=== PATIENT | male | born 1935 | race Caucasian/White ===

== ENCOUNTER 2017-05-14 13:05 | Inpatient (IN) | payer OTHER, BC ==
--- NOTE | 2017-05-14 13:47 | PDOC ---
History of Present Illness - General Chief Complaint: Syncope/Near Syncope Stated Complaint: WEAKNESS Time Seen by Provider: 05/14/17 13:46 - History of Present Illness Initial Comments: 81 year old male with history of HLD and hypothyroidism presenting with one episode of shakes, lightheadedness, and altered mental status a few hours prior to presentation. He was walking with his friend when he stopped of all of a sudden and began to experience upper body shakes and began to appear mentally altered. He denies any fevers, chills, nausea, vomiting, chest pain, focal neurological signs, urinary issues, or gi symptoms. However, during our interview he did urinate himself which the family at bedside said is brand new for him. They state that he is usually very sharp and actually takes care of his at home. His PCP is Dr. Jeong. 05/14/17 14:53 Past History - Past Medical History Allergies/Adverse Reactions: Allergies Allergy/AdvReac Type Severity Reaction Status Date / Time No Known Allergies Allergy Verified 05/14/17 13:14 Home Medications: Ambulatory Orders Aspirin [ASA -] 81 mg PO DAILY 05/14/17 Atorvastatin Ca [Lipitor] 20 mg PO HS 05/14/17 Cholecalciferol (Vitamin D3) [Vitamin D3 -] 2,000 unit PO DAILY 05/14/17 Levothyroxine [Synthroid -] 0 mcg PO DAILY 05/14/17 COPD: No Hypercholesterolemia: Yes Thyroid Disease: Yes (HYPO.) - Suicide/Smoking/Psychosocial Hx Smoking History: Never smoked Hx Alcohol Use: No Drug/Substance Use Hx: No Substance Use Type: None Review of Systems - Review of Systems Constitutional: No: Chills, Fever HEENTM: No: Blurred Vision, Recent change in vision Respiratory: No: Cough, Orthopnea, Shortness of Breath, Stridor, Wheezing Cardiac (ROS): Yes: Lightheadedness. No: Chest Pain, Edema, Syncope ABD/GI: No: Constipated, Diarrhea, Nausea, Vomiting : Yes: Incontinence. No: Dysuria, Discharge, Frequency Musculoskeletal: No: Back Pain Integumentary: No: Erythema, Flushing, Lesions, Lumps Neurological: No: Headache, Numbness *Physical Exam - Vital Signs Last Vital Signs Temp Pulse Resp BP Pulse Ox 98.5 F 97 H 18 133/75 97 05/14/17 13:10 05/14/17 13:10 05/14/17 13:10 05/14/17 13:10 05/14/17 13:10 - Physical Exam General Appearance: Yes: Nourished, Appropriately Dressed. No: Apparent Distress HEENT: positive: EOMI, SADAF, Normal ENT Inspection, Normal Voice Neck: positive: Trachea midline, Normal Thyroid, Supple. negative: Tender, Rigid Respiratory/Chest: positive: Lungs Clear, Normal Breath Sounds. negative: Chest Tender, Respiratory Distress, Accessory Muscle Use Cardiovascular: positive: Regular Rhythm, Regular Rate Gastrointestinal/Abdominal: positive: Normal Bowel Sounds, Flat, Soft. negative : Tender Male Genitalia: positive: normal genitalia, other (Urinated himself and cannot aciveloy control his urine) Musculoskeletal: positive: Normal Inspection Extremity: positive: Normal Capillary Refill, Normal Inspection Integumentary: positive: Normal Color, Dry, Warm (Skin unusually warm to touch) Neurologic: positive: sole seamer II-XII NML intact, Alert, Normal Mood/Affect, Motor Strength 5/5. negative: Fully Oriented (A) x2 (Person and Place, believed it was 1964)) ED Treatment Course - LABORATORY CBC & Chemistry Diagram: 05/14/17 15:05 05/14/17 15:05 Medical Decision Making - Medical Decision Making 81 year old male with urinary incontinence on interview, AMS, and gait abnormality/ shaking episode. Concern is broad as patient appeared warm. Infectious pathology such as UTI, PNA, and any soft tissue infection should all be ruled out. Head CT should be performed to rule out NPH although infectious etiology more likely. Patient admitted to Dr. Noel with head CT pending but UA demonsrating hematuria with leuk esterase pending, and CXR clear. Will admit for SIRS (Fevers, heart >90, and WBC with left shift) with suspected source in urine. Ceftriaxone given. Tylenol given for fever. 05/14/17 17:38 *DC/Admit/Observation/Transfer Diagnosis at time of Disposition: SIRS (systemic inflammatory response syndrome), Microscopic hematuria, Neutrophilic leukocytosis - Discharge Dispostion Condition at time of disposition: Stable Admit: Yes - Referrals Referrals: James Simpson MD [Primary Care Provider] - - Patient Instructions - Post Discharge Activity
[2017-05-14 15:34] LABS: VENOUS BLOOD GAS HCO3 27.9 meq/L (19-25); VENOUS PH 7.41 (7.32-7.42)
[2017-05-14 15:54] LABS: ANION GAP 8 (8-16); CALCIUM 9.2 mg/dL (8.5-10.1); CO2 29 mmol/L (21-32); CREATININE 1.2 mg/dL (0.7-1.3); GLUCOSE,RANDOM 78 mg/dL (74-106); SGOT/AST 25 U/L (15-37); SGPT/ALT 29 U/L (12-78)
[2017-05-14 15:56] LABS: PH,URINE 7.5 (5.0-8.0); URINE APPEARANCE CLEAR; URINE BILIRUBIN NEGATIVE (NEGATIVE); URINE BLOOD TRACE-INTA (NEGATIVE); URINE COLOR LT. YELLOW; URINE GLUCOSE (UA) NEGATIVE (NEGATIVE); URINE KETONE NEGATIVE (NEGATIVE); URINE NITRITE NEGATIVE (NEGATIVE); URINE PROTEIN NEGATIVE (NEGATIVE); URINE UROBILINOGEN 0.2 mg/dL (0.2-1.0)
[2017-05-14 15:59] LABS: ALK PHOS 78 U/L (45-117); BILIRUBIN,TOTAL 0.6 mg/dL (0.2-1.0); CPK 282 IU/L (39-308); TOT PROT 7.6 g/dl (6.4-8.2); TROPONIN I < 0.02 ng/ml (0.00-0.05)
--- NOTE | 2017-05-14 16:13 | PDOC ---
Attending Attestation - Resident Resident Name: Temo Guallpa - ED Attending Attestation I have performed the following: I have examined & evaluated the patient, The case was reviewed & discussed with the resident, I agree w/resident's findings & plan, Exceptions are as noted - HPI HPI: 05/14/17 18:17 81y M hx of hl, hypothyroidism presents with episode of chills/lightheadedness prior to arrival. pt deeins any other complaints including cp, sob, cough, congestion/uri symptoms, abd pain, diarrhea, bpr, dysuria/frequency, rash, ear pain. pt noted warm on exam and his temp showe da fever. his exam is unremarkble with clear lngs, soft abdomen, card exam unremabkel without any murmuers, no rashes. his workup does not reveal any focal signs of infection his UA shows trace blood, but LE pending will treat with abx will admit for further nmanageemnt blood cultures pending - Physicial Exam PE: 05/18/17 16:40 see above - Medical Decision Making 05/18/17 16:40 see above Heart Score/ECG Review - ECG Impressions Comment:: 05/14/17 18:19 Twelve-lead EKG was performed and reviewed by me. There is normal sinus rhythm with a normal rate. Rate of 93 The axis is normal. The intervals are normal. There is normal R wave progression There are no ST or T wave abnormalities. Impression: Normal twelve-lead EKG
[2017-05-14] MEDS ORDERED: ACETAMINOPHEN 500 MG TABLET (FP) PO ONE (16:15)
[2017-05-14 16:20] LABS: BASOPHIL 0.3 % (0-2.0); EOSINOPHIL 0.5 % (0-4.5); MCH 32.8 pg (25.7-33.7); MEAN CELL VOLUME 96.4 fl (80-96); NEUTROPHILS 87.4 % (42.8-82.8); RDW 14.2 % (11.9-15.9); WHITE BLOOD COUNT 11.8 K/mm3 (4.0-10.0)
[2017-05-14] MEDS ORDERED: ACETAMINOPHEN 325 MG TABLET (FP) PO PRN (16:38)
--- NOTE | 2017-05-14 16:44 | HP ---
Admitting History and Physical - Primary Care Physician PCP: James Simpson - Admission Chief Complaint: I was told to come in History of Present Illness: Mr Gaines is a very pleasant 81 year old male who was sent in from the office with weakness. He states he was in his normal state of health until this morning. He noticed that when he stood up he felt lightheaded. He did not pass out from this. He sat down and began to shake. He says it was his upper body and he was not able to control it. He was also having a hard time standing up. He went into the office and it was noted that he was very weak and unable to stand without assistance. Because of that he came in. He endorses chills and possibly difficulty urinating with small urge incontinence. He denies fevers, passing out, sore throat, chest pain, coughing, nausea, vomiting, diarrhea, constipation, burning on urination, or swelling. He says he feels ok now. History Source: Patient Limitations to Obtaining History: No Limitations - Past Medical History Cardiovascular: Yes: HTN, Hyperlipdemia Renal/: Yes: Other (prostate polyps) Endocrine: Yes: Hypothyroidism - Past Surgical History Past Surgical History: Yes: None - Smoking History Smoking history: Never smoked - Alcohol/Substance Use Hx Alcohol Use: Yes History of Substance Use: reports: None - Social History Usual Living Arrangement: Yes: Alone History of Recent Travel: No Home Medications - Allergies Allergies/Adverse Reactions: Allergies Allergy/AdvReac Type Severity Reaction Status Date / Time No Known Allergies Allergy Verified 05/14/17 13:14 - Home Medications Home Medications: Ambulatory Orders Aspirin [ASA -] 81 mg PO DAILY 05/14/17 Atorvastatin Ca [Lipitor] 20 mg PO HS 05/14/17 Cholecalciferol (Vitamin D3) [Vitamin D3 -] 2,000 unit PO DAILY 05/14/17 Levothyroxine [Synthroid -] 0 mcg PO DAILY 05/14/17 Family Disease History - Family Disease History Family Disease History: Other: Father ( young, unknown cause), Mother (CVA) Review of Systems Findings/Remarks: Full review of systems obtained, as per HPI and otherwise negative Physical Examination Vital Signs: Vital Signs Temperature 39.8 C H 05/14/17 15:17 Pulse Rate 97 H 05/14/17 13:10 Respiratory Rate 18 05/14/17 13:10 Blood Pressure 133/75 05/14/17 13:10 O2 Sat by Pulse Oximetry (%) 97 05/14/17 13:10 Constitutional: Yes: Well Nourished, No Distress, Calm Eyes: Yes: Conjunctiva Clear, EOM Intact, PERRL Cardiovascular: Yes: Regular Rate and Rhythm. No: Gallop, Murmur, Rub Respiratory: Yes: Regular, CTA Bilaterally. No: Rales, Rhonchi, Wheezes Gastrointestinal: Yes: Normal Bowel Sounds, Soft. No: Distention, Tenderness Extremities: Yes: WNL Edema: No Labs: CBC, BMP 05/14/17 15:05 05/14/17 15:05 Imaging - Results Chest X-ray: Report Reviewed, Image Reviewed Cat Scan: Report Reviewed Problem List - Problems (1) UTI (urinary tract infection) Assessment/Plan: -patient presents with symptoms consistent with UTI -await cell count with urinalysis -urine culture pending -levaquin 500mg daily, has better prostate penetration -lactobacillus Code(s): N39.0 - URINARY TRACT INFECTION, SITE NOT SPECIFIED Qualifiers: Urinary tract infection type: acute cystitis Hematuria presence: without hematuria Qualified Code(s): N30.00 - Acute cystitis without hematuria (2) Sepsis Assessment/Plan: -as evidenced by UTI with fevers and leukocytosis -admit to hospital -gentle hydration -antibiotics as above -also check influenza swab Code(s): A41.9 - SEPSIS, UNSPECIFIED ORGANISM (3) Hyperlipidemia Assessment/Plan: -continue statin Code(s): E78.5 - HYPERLIPIDEMIA, UNSPECIFIED (4) Prostate CA Assessment/Plan: -noted Code(s): C61 - MALIGNANT NEOPLASM OF PROSTATE (5) Nasal mass Assessment/Plan: -seen on CT scan of head -consult ENT Code(s): R22.0 - LOCALIZED SWELLING, MASS AND LUMP, HEAD (6) Hypothyroid Assessment/Plan: -unclear dose -will d/w Dr Simpson dosing for synthroid -restart when have correct dosage Code(s): E03.9 - HYPOTHYROIDISM, UNSPECIFIED
[2017-05-14] MEDS ORDERED: CEFTRIAXONE 1 GM in DEXTROSE 5%-WATER - 100 ML IVPB ONE (16:45)
[2017-05-14] MEDS ORDERED: ACETAMINOPHEN 500 MG TABLET (FP) ONE (16:48)
[2017-05-14] MEDS: SODIUM CHLORIDE 1,000 ML IV SCH (17:37)
[2017-05-14] MEDS: LEVOFLOXACIN 500 MG IVPB 500 MG/100 ML BAG IVPB SCH (17:37)
[2017-05-14] MEDS ORDERED: CEFTRIAXONE 1 GM/50 ML BAG ONE (17:55)
[2017-05-14] MEDS: LACTOBACILLUS ACIDOPHILUS 1 EACH TAB (FP) PO SCH (19:45)
[2017-05-14 20:14] LABS: URINE LEUK ESTERASE TRACE (NEGATIVE)
[2017-05-14 20:56] LABS: URINE BACTERIA MANY /hpf (NEGATIVE)
[2017-05-14] MEDS ORDERED: ATORVASTATIN CA 40 MG TABLET (FP) ONE (22:58)
[2017-05-14] MEDS: ATORVASTATIN CA 20 MG TABLET (FP) PO SCH (23:04)
[2017-05-15 00:49] LABS: PLATELET COMMENTS NO CLUMPING NOTED; PLATELET COUNT 173 K/MM3 (134-434)
[2017-05-15] MEDS: SODIUM CHLORIDE 1,000 ML IV SCH ×2 (05:33→11:43)
[2017-05-15 05:50] VITALS: BMI 24.4
[2017-05-15 08:35] LABS: BASOPHIL 0.3 % (0-2.0); EOSINOPHIL 0.4 % (0-4.5); MCH 32.4 pg (25.7-33.7); MCHC 34.2 g/dl (32.0-35.9); MEAN CELL VOLUME 94.9 fl (80-96); MEAN PLT VOLUME 8.2 fl (7.5-11.1); NEUTROPHILS 78.7 % (42.8-82.8); PLATELET COUNT 141 K/MM3 (134-434); RDW 14.3 % (11.9-15.9); WHITE BLOOD COUNT 13.4 K/mm3 (4.0-10.0)
[2017-05-15 09:03] LABS: ANION GAP 6 (8-16); CALCIUM 7.7 mg/dL (8.5-10.1); CO2 27 mmol/L (21-32); CREATININE 1.4 mg/dL (0.7-1.3); GLUCOSE,RANDOM 105 mg/dL (74-106); PHOSPHOROUS 2.3 mg/dL (2.5-4.9)
[2017-05-15] MEDS: LEVOFLOXACIN 500 MG IVPB 500 MG/100 ML BAG IVPB SCH (09:47)
[2017-05-15] MEDS: ENOXAPARIN NA (PORCINE) 40 MG/0.4 ML DISP.SYRIN SQ SCH (09:47)
[2017-05-15] MEDS: CHOLECALCIFEROL (VITAMIN D3) 1,000 UNIT TABLET (FP) PO SCH (09:48)
[2017-05-15] MEDS: LACTOBACILLUS ACIDOPHILUS 1 EACH TAB (FP) PO SCH (09:48)
[2017-05-15] MEDS: ASPIRIN 81 MG CHEWABLE TABLETS PO SCH (09:48)
--- NOTE | 2017-05-15 12:02 | PN ---
Progress Note, Physician Chief Complaint: Mr Gaines is without complaint today and feels better. Denies shaking, chills, lightheadedness, and weakness. No cp, sob, n/v. - Current Medication List Current Medications: Active Medications Acetaminophen (Tylenol -) 650 mg PO Q4H PRN PRN Reason: FEVER OR PAIN Aspirin (Asa -) 81 mg PO DAILY [facility] Last Admin: 05/15/17 09:48 Dose: Not Given Atorvastatin Calcium (Lipitor -) 20 mg PO HS [facility] Last Admin: 05/14/17 23:04 Dose: 20 mg Cholecalciferol (Vitamin D3 -) 2,000 unit PO DAILY [facility] Last Admin: 05/15/17 09:48 Dose: 2,000 unit Enoxaparin Sodium (Lovenox -) 40 mg SQ DAILY [facility] Last Admin: 05/15/17 09:47 Dose: 40 mg Sodium Chloride (Normal Saline -) 1,000 mls @ 42 mls/hr IV ASDIR [facility] Last Admin: 05/15/17 05:33 Dose: 42 mls/hr Levofloxacin (Levaquin 500 Mg Premixed Ivpb -) 500 mg in 100 mls @ 100 mls/hr IVPB DAILY [facility] Last Admin: 05/15/17 09:47 Dose: 100 mls/hr Lactobacillus Acidophilus (Bacid -) 1 tab PO DAILY [facility] Last Admin: 05/15/17 09:48 Dose: 1 tab - Objective Vital Signs: Vital Signs Temperature 36.8 C 05/15/17 05:02 Pulse Rate 82 05/15/17 05:02 Respiratory Rate 18 05/15/17 05:02 Blood Pressure 93/54 05/15/17 05:02 O2 Sat by Pulse Oximetry (%) 96 05/15/17 04:45 Constitutional: Yes: Well Nourished, No Distress, Calm Cardiovascular: Yes: Regular Rate and Rhythm. No: Gallop, Murmur, Rub Respiratory: Yes: Regular, CTA Bilaterally. No: Rales, Rhonchi, Wheezes Gastrointestinal: Yes: Normal Bowel Sounds, Soft. No: Distention, Tenderness Extremities: Yes: WNL Edema: No Labs: CBC, BMP 05/15/17 08:28 05/15/17 08:28 INR, PTT INR Cancelled 05/14/17 15:05 Problem List - Problems (1) UTI (urinary tract infection) Code(s): N39.0 - URINARY TRACT INFECTION, SITE NOT SPECIFIED Qualifiers: Urinary tract infection type: acute cystitis Hematuria presence: without hematuria Qualified Code(s): N30.00 - Acute cystitis without hematuria (2) Sepsis Code(s): A41.9 - SEPSIS, UNSPECIFIED ORGANISM (3) Hyperlipidemia Code(s): E78.5 - HYPERLIPIDEMIA, UNSPECIFIED (4) Prostate CA Code(s): C61 - MALIGNANT NEOPLASM OF PROSTATE (5) Nasal mass Code(s): R22.0 - LOCALIZED SWELLING, MASS AND LUMP, HEAD (6) Hypothyroid Code(s): E03.9 - HYPOTHYROIDISM, UNSPECIFIED Assessment/Plan (1) UTI (urinary tract infection) Assessment/Plan: -continue levaquin 500mg daily day 2 -urinalysis showing many bacteria -awaiting urine culture results Code(s): N39.0 - URINARY TRACT INFECTION, SITE NOT SPECIFIED Qualifiers: Urinary tract infection type: acute cystitis Hematuria presence: without hematuria Qualified Code(s): N30.00 - Acute cystitis without hematuria (2) Sepsis Assessment/Plan: -still with leukocytosis and today with am hypotension -continue IVF -continue levaquin Code(s): A41.9 - SEPSIS, UNSPECIFIED ORGANISM (3) Hyperlipidemia Assessment/Plan: -continue statin Code(s): E78.5 - HYPERLIPIDEMIA, UNSPECIFIED (4) Prostate CA Assessment/Plan: -noted Code(s): C61 - MALIGNANT NEOPLASM OF PROSTATE (5) Nasal mass Assessment/Plan: -appreciate ENT assistance Code(s): R22.0 - LOCALIZED SWELLING, MASS AND LUMP, HEAD (6) Hypothyroid Assessment/Plan: -continue synthroid Code(s): E03.9 - HYPOTHYROIDISM, UNSPECIFIED
--- NOTE | 2017-05-15 12:54 | CON.ENT ---
Consult Consult Specialty:: ENT Reason for Consultation:: Nasal mass on CT scan - History of Present Illness Chief Complaint: Nasal mass History of Present Illness: 81 yo male who presented to [facility] ER with lightheadness was noted to have a finding of nasal mass on CT scan of the head. Pt denies any nasal issues of obstruction, nosebleeds, loss of smell or congestion/runny nose. He denies seasonal allergy issues or chronic headaches. - History Source History Provided By: Patient Limitations to Obtaining History: No Limitations - Past Medical History Cardio/Vascular: Yes: HTN, Hyperlipdemia Renal/: Yes: Other (prostate polyps) ENT: No: Allergic Rhinitis, Sinusitis, Other Endocrine: Yes: Hypothyroidism - Past Surgical History Past Surgical History: Yes: None - Alcohol/Substance Use Hx Alcohol Use: Yes (a beer with dinner) History of Substance Use: reports: None - Smoking History Smoking history: Never smoked - Social History History of Recent Travel: No Home Medications - Allergies Allergies/Adverse Reactions: Allergies Allergy/AdvReac Type Severity Reaction Status Date / Time No Known Allergies Allergy Verified 05/14/17 13:14 - Home Medications Home Medications: Ambulatory Orders Atorvastatin Ca [Lipitor] 20 mg PO HS 05/14/17 Cholecalciferol (Vitamin D3) [Vitamin D3 -] 2,000 unit PO DAILY 05/14/17 Family Disease History - Family Disease History Family Disease History: Other: Father ( young, unknown cause), Mother (CVA) Review of Systems - Review of Systems HENT: reports: No Symptoms Neck: reports: No Symptoms Physical Exam-ENT Vital Signs: Vital Signs Temperature 98.3 F 05/15/17 05:02 Pulse Rate 82 05/15/17 05:02 Respiratory Rate 18 05/15/17 05:02 Blood Pressure 93/54 05/15/17 05:02 O2 Sat by Pulse Oximetry (%) 96 05/15/17 04:45 Constitutional: Yes: Well Nourished, No Distress Head: Yes: WNL Face: Yes: WNL Eyes: Yes: EOM Intact Nose: Yes: Pale, Septum Deviated Nasal Passage: Yes: Polyps Oral/Pharynx: Yes: WNL Outer Ear: Yes: WNL Ear Canal: Yes: WNL Tympanic Membrane: Yes: WNL Neck: Yes: WNL, Supple Neurological: Yes: Cran Nerves II-XII Intact Imaging - Results Cat Scan: Report Reviewed, Image Reviewed Problem List - Problems (1) Nasal polyps Assessment/Plan: Pt noted to have nasal mass on CT scan of head, bilateral nasal polyps noted, larger on the right. Pt is and has been asymptomatic without complaint. Can treat with nasal steroid spray if needed. No further intervention at this time. Code(s): J33.9 - NASAL POLYP, UNSPECIFIED Procedure Note Procedure: After obtaining verbal consent from the patient, nasal endoscopy was performed. Topical anesthetic sprayed, flexible endoscope passed. Mildly deviated septum with pale mucosa noted. Pale inferior turbinates with mild hypertrophy. Bilateral small polyps in middle meatus. Larger polyps inferiorly on the right from sphenoethmoid recess obstructing posteriorly . No infection or suspicious lesions noted.
--- NOTE | 2017-05-15 13:03 | EKG ---
Test Reason : Blood Pressure : / mmHG Vent. Rate : 093 BPM Atrial Rate : 093 BPM P-R Int : 168 ms QRS Dur : 088 ms QT Int : 324 ms P-R-T Axes : -25 080 004 degrees QTc Int : 402 ms NORMAL SINUS RHYTHM NORMAL ECG NO PREVIOUS ECGS AVAILABLE Confirmed by ALON BARTH, LIBIA ([id number]) on 05/15/2017 1:02:46 PM Referred By: Confirmed By:LIBIA CHI MD
--- NOTE | 2017-05-15 14:17 | PN ---
Progress Note (short form) - Note Progress Note: Patient was standing up to use the restroom and slipped on the floor and fell. Did not hit his head or lose consciousness. Patient says he was not dizzy or passed out causing the fall and that it was mechanical. Denies any pain or other concern, says he feels fine. Gen: nad Pulm: ctab CV: rrr Abd: +bs, s/nt/nd Ext: no c/c/e A/P 1. Mechanical fall -place on fall risk precautions -PT consulted and will see -obtain head CT Problem List - Problems (1) UTI (urinary tract infection) Code(s): N39.0 - URINARY TRACT INFECTION, SITE NOT SPECIFIED Qualifiers: Urinary tract infection type: acute cystitis Hematuria presence: without hematuria Qualified Code(s): N30.00 - Acute cystitis without hematuria (2) Sepsis Code(s): A41.9 - SEPSIS, UNSPECIFIED ORGANISM (3) Hyperlipidemia Code(s): E78.5 - HYPERLIPIDEMIA, UNSPECIFIED (4) Prostate CA Code(s): C61 - MALIGNANT NEOPLASM OF PROSTATE (5) Nasal mass Code(s): R22.0 - LOCALIZED SWELLING, MASS AND LUMP, HEAD (6) Hypothyroid Code(s): E03.9 - HYPOTHYROIDISM, UNSPECIFIED
[2017-05-15 18:02] LABS: INR 1.48 (0.82-1.09); PROTHROMBIN TIME (PATIENT) 16.7 SEC (9.98-11.88)
[2017-05-15 18:05] LABS: ACTIVATED PTT 36.1 SECONDS (26.9-34.4)
[2017-05-15] MEDS: ATORVASTATIN CA 20 MG TABLET (FP) PO SCH (23:02)
[2017-05-16 07:29] LABS: BASOPHIL 0.2 % (0-2.0); EOSINOPHIL 1.2 % (0-4.5); MCH 32.3 pg (25.7-33.7); MCHC 33.8 g/dl (32.0-35.9); MEAN CELL VOLUME 95.5 fl (80-96); MEAN PLT VOLUME 8.1 fl (7.5-11.1); NEUTROPHILS 70.9 % (42.8-82.8); PLATELET COUNT 127 K/MM3 (134-434); RDW 14.3 % (11.9-15.9); WHITE BLOOD COUNT 10.9 K/mm3 (4.0-10.0)
[2017-05-16 08:13] LABS: ANION GAP 6 (8-16); CALCIUM 7.6 mg/dL (8.5-10.1); CO2 27 mmol/L (21-32); CREATININE 1.1 mg/dL (0.7-1.3); GLUCOSE,RANDOM 97 mg/dL (74-106); MAGNESIUM 2.2 mg/dL (1.8-2.4); PHOSPHOROUS 2.2 mg/dL (2.5-4.9)
[2017-05-16] MEDS ORDERED: NAPH,MB-DB/K PH,MBDB POWDER PACKET PO ONE (09:23)
[2017-05-16] MEDS: LACTOBACILLUS ACIDOPHILUS 1 EACH TAB (FP) PO SCH (10:40)
[2017-05-16] MEDS: CHOLECALCIFEROL (VITAMIN D3) 1,000 UNIT TABLET (FP) PO SCH (10:40)
[2017-05-16] MEDS: LEVOFLOXACIN 500 MG IVPB 500 MG/100 ML BAG IVPB SCH (10:40)
[2017-05-16] MEDS: ENOXAPARIN NA (PORCINE) 40 MG/0.4 ML DISP.SYRIN SQ SCH (10:40)
[2017-05-16] MEDS: ASPIRIN 81 MG CHEWABLE TABLETS PO SCH (10:40)
[2017-05-16] MEDS: SODIUM CHLORIDE 1,000 ML IV SCH (11:44)
--- NOTE | 2017-05-16 16:19 | PN ---
Progress Note, Physician Chief Complaint: Mr Gaines is without complaint today and feels better. No cp, sob, n/v. Hoping to go home soon. - Current Medication List Current Medications: Active Medications Acetaminophen (Tylenol -) 650 mg PO Q4H PRN PRN Reason: FEVER OR PAIN Aspirin (Asa -) 81 mg PO DAILY [facility] Last Admin: 05/16/17 10:40 Dose: 81 mg Atorvastatin Calcium (Lipitor -) 20 mg PO HS [facility] Last Admin: 05/15/17 23:02 Dose: 20 mg Cholecalciferol (Vitamin D3 -) 2,000 unit PO DAILY [facility] Last Admin: 05/16/17 10:40 Dose: 2,000 unit Enoxaparin Sodium (Lovenox -) 40 mg SQ DAILY [facility] Last Admin: 05/16/17 10:40 Dose: 40 mg Sodium Chloride (Normal Saline -) 1,000 mls @ 42 mls/hr IV ASDIR [facility] Last Admin: 05/16/17 11:44 Dose: 42 mls/hr Levofloxacin (Levaquin 500 Mg Premixed Ivpb -) 500 mg in 100 mls @ 100 mls/hr IVPB DAILY [facility] Last Admin: 05/16/17 10:40 Dose: 100 mls/hr Lactobacillus Acidophilus (Bacid -) 1 tab PO DAILY [facility] Last Admin: 05/16/17 10:40 Dose: 1 tab - Objective Vital Signs: Vital Signs Temperature 36.3 C L 05/16/17 14:15 Pulse Rate 71 05/16/17 14:15 Respiratory Rate 18 05/16/17 14:15 Blood Pressure 112/68 05/16/17 14:15 O2 Sat by Pulse Oximetry (%) 95 05/16/17 09:00 Constitutional: Yes: Well Nourished, No Distress, Calm Cardiovascular: Yes: Regular Rate and Rhythm. No: Gallop, Murmur, Rub Respiratory: Yes: Regular, CTA Bilaterally. No: Rales, Rhonchi, Wheezes Gastrointestinal: Yes: Normal Bowel Sounds, Soft. No: Distention, Tenderness Extremities: Yes: WNL Edema: No Labs: CBC, BMP 05/16/17 06:00 05/16/17 06:00 INR, PTT INR 1.48 (0.82-1.09) H 05/15/17 16:35 Problem List - Problems (1) UTI (urinary tract infection) Code(s): N39.0 - URINARY TRACT INFECTION, SITE NOT SPECIFIED Qualifiers: Urinary tract infection type: acute cystitis Hematuria presence: without hematuria Qualified Code(s): N30.00 - Acute cystitis without hematuria (2) Sepsis Code(s): A41.9 - SEPSIS, UNSPECIFIED ORGANISM (3) Hyperlipidemia Code(s): E78.5 - HYPERLIPIDEMIA, UNSPECIFIED (4) Prostate CA Code(s): C61 - MALIGNANT NEOPLASM OF PROSTATE (5) Nasal mass Code(s): R22.0 - LOCALIZED SWELLING, MASS AND LUMP, HEAD (6) Hypothyroid Code(s): E03.9 - HYPOTHYROIDISM, UNSPECIFIED Assessment/Plan (1) UTI (urinary tract infection) Assessment/Plan: -continue levaquin 500mg daily day 3 -urine cultures positive -await final results Code(s): N39.0 - URINARY TRACT INFECTION, SITE NOT SPECIFIED Qualifiers: Urinary tract infection type: acute cystitis Hematuria presence: without hematuria Qualified Code(s): N30.00 - Acute cystitis without hematuria (2) Sepsis Assessment/Plan: -resolving -continue IVF -continue levaquin Code(s): A41.9 - SEPSIS, UNSPECIFIED ORGANISM (3) Hyperlipidemia Assessment/Plan: -continue statin Code(s): E78.5 - HYPERLIPIDEMIA, UNSPECIFIED (4) Prostate CA Assessment/Plan: -noted Code(s): C61 - MALIGNANT NEOPLASM OF PROSTATE (5) Nasal mass Assessment/Plan: -appreciate ENT assistance Code(s): R22.0 - LOCALIZED SWELLING, MASS AND LUMP, HEAD (6) Hypothyroid Assessment/Plan: -continue synthroid Code(s): E03.9 - HYPOTHYROIDISM, UNSPECIFIED
[2017-05-16] MEDS: ATORVASTATIN CA 20 MG TABLET (FP) PO SCH (21:14)
[2017-05-17] MEDS: SODIUM CHLORIDE 1,000 ML IV SCH (06:41)
[2017-05-17 08:15] LABS: BASOPHIL 0.5 % (0-2.0); EOSINOPHIL 5.3 % (0-4.5); MCH 32.4 pg (25.7-33.7); MCHC 33.8 g/dl (32.0-35.9); MEAN CELL VOLUME 95.9 fl (80-96); MEAN PLT VOLUME 8.6 fl (7.5-11.1); PLATELET COUNT 157 K/MM3 (134-434); WHITE BLOOD COUNT 6.3 K/mm3 (4.0-10.0)
[2017-05-17 08:21] LABS: ANION GAP 6 (8-16); CALCIUM 7.5 mg/dL (8.5-10.1); CO2 26 mmol/L (21-32); GLUCOSE,RANDOM 93 mg/dL (74-106); MAGNESIUM 2.3 mg/dL (1.8-2.4)
[2017-05-17 08:22] LABS: PHOSPHOROUS 2.7 mg/dL (2.5-4.9)
[2017-05-17] MEDS: LACTOBACILLUS ACIDOPHILUS 1 EACH TAB (FP) PO SCH (10:19)
[2017-05-17] MEDS: ENOXAPARIN NA (PORCINE) 40 MG/0.4 ML DISP.SYRIN SQ SCH (10:19)
[2017-05-17] MEDS: CHOLECALCIFEROL (VITAMIN D3) 1,000 UNIT TABLET (FP) PO SCH (10:20)
[2017-05-17] MEDS: ASPIRIN 81 MG CHEWABLE TABLETS PO SCH (10:20)
[2017-05-17] MEDS: LEVOFLOXACIN 500 MG IVPB 500 MG/100 ML BAG IVPB SCH (10:20)
[2017-05-17 11:03] VITALS: BP 101/71; PULSE 77; TEMP 98.1
--- NOTE | 2017-05-17 11:54 | DS ---
Physical Examination Vital Signs: Vital Signs Temperature 36.7 C 05/17/17 09:00 Pulse Rate 77 05/17/17 09:00 Respiratory Rate 18 05/17/17 09:00 Blood Pressure 101/71 05/17/17 09:00 O2 Sat by Pulse Oximetry (%) 94 L 05/17/17 09:00 Constitutional: Yes: Well Nourished, No Distress, Calm Cardiovascular: Yes: Regular Rate and Rhythm. No: Gallop, Murmur, Rub Respiratory: Yes: Regular, CTA Bilaterally. No: Rales, Rhonchi, Wheezes Gastrointestinal: Yes: Normal Bowel Sounds, Soft. No: Distention, Tenderness Extremities: Yes: WNL Edema: No Labs: CBC, BMP 05/17/17 06:30 05/17/17 06:30 Discharge Summary Reason For Visit: NEUTROPHILIA; LEUKOCYTOSIS; SIRS Current Active Problems Hyperlipidemia (Acute) Hypothyroid (Acute) Microscopic hematuria (Acute) Nasal mass (Acute) Nasal polyps (Acute) Neutrophilic leukocytosis (Acute) Prostate CA (Acute) SIRS (systemic inflammatory response syndrome) (Acute) Sepsis (Acute) UTI (urinary tract infection) (Acute) Hospital Course: (1) UTI (urinary tract infection) Code(s): N39.0 - URINARY TRACT INFECTION, SITE NOT SPECIFIED Qualifiers: Urinary tract infection type: acute cystitis Hematuria presence: without hematuria Qualified Code(s): N30.00 - Acute cystitis without hematuria (2) Sepsis Code(s): A41.9 - SEPSIS, UNSPECIFIED ORGANISM (3) Hyperlipidemia Code(s): E78.5 - HYPERLIPIDEMIA, UNSPECIFIED (4) Prostate CA Code(s): C61 - MALIGNANT NEOPLASM OF PROSTATE (5) Nasal mass Code(s): R22.0 - LOCALIZED SWELLING, MASS AND LUMP, HEAD (6) Hypothyroid Code(s): E03.9 - HYPOTHYROIDISM, UNSPECIFIED (7) Mechanical fall Mr Gaines is a very pleasant 81 year old male who comes in with sepsis secondary to UTI. He was admitted to the hospital and started on levaquin since it also has significant prostate penetration. He was hydrated for the sepsis. He improved significantly with this treatment. He had a mechanical fall without trauma. He is currently stable and at baseline. He was seen by PT after fall and was able to ambulate. He is currently stable for discharge home. 31 minutes spent in preparation of this discharge Condition: Good - Instructions Diet, Activity, Other Instructions: resume previous diet and activity Referrals: James Simpson MD [Primary Care Provider] - Disposition: HOME - Home Medications Comprehensive Discharge Medication List: Ambulatory Orders Atorvastatin Ca [Lipitor] 20 mg PO HS 05/14/17 Cholecalciferol (Vitamin D3) [Vitamin D3 -] 2,000 unit PO DAILY 05/14/17 Lactobacillus Acidophilus [Bacid -] 1 tab PO DAILY #10 tab 05/17/17 Levofloxacin [Levaquin] 500 mg PO DAILY #10 tablet 05/17/17
== END 2017-05-17 14:27 | disposition home or self-care (01) | DRG 872 ==
LOC: JER 13:05 → JERBED 16:43 → J7W 05-15 05:43
PROVIDERS: ADMIT Internal Medicine; ATTEND Internal Medicine
PROC: 09JK8ZZ Inspection of Nasal Mucosa and Soft Tissue, Via Natural or Artificial Opening Endoscopic (ICD-10-PCS; principal; 2017-05-15)
DX: A41.9 Sepsis, unspecified organism (principal); N39.0 Urinary tract infection, site not specified; E78.5 Hyperlipidemia, unspecified; E03.9 Hypothyroidism, unspecified; J33.9 Nasal polyp, unspecified; J34.2 Deviated nasal septum; R31.29 Other microscopic hematuria; R22.0 Localized swelling, mass and lump, head
CPT/HCPCS: 36415; 70450-TC; 71010-TC; 80048; 80053; 81003; 81015; 82040; 82550; 82553; 82803; 83605; 83735; 84100; 84484; 85025; 85610; 85730; 86850; 86900; 86901; 87040; 87086; 87186; 87804; 93005; 93010; 97116-GP; 97161-GP; 99285-25

== ENCOUNTER 2023-03-19 13:52 | Inpatient (IN) | payer OTHER ==
[2023-03-19] MEDS ORDERED: SODIUM CHLORIDE 0.9% 500 ML INFUS.BAG IV ONE (14:30)
[2023-03-19 15:53] LABS: BASO % 0.5 % (0-2.0); HEMATOCRIT 37.6 % (35.4-49); HEMOGLOBIN 13.1 GM/dL (11.7-16.9); LYMPH % 12.8 % (8-40); MCH 32.6 pg (25.7-33.7); MEAN CELL VOLUME 93.2 fl (80-96); MEAN PLT VOLUME 7.4 fl (7.5-11.1); MONO % 9.8 % (3.8-10.2); NEUT % 76.9 % (42.8-82.8); PLATELET COUNT 202 10^3/uL (134-434); RBC 4.03 M/mm3 (4.00-5.60); RDW 14.5 % (11.9-15.9); WHITE BLOOD COUNT 7.1 K/mm3 (4.0-10.0)
[2023-03-19 15:59] LABS: INR 1.17 (0.83-1.09); PROTHROMBIN TIME (PATIENT) 13.5 SEC (9.7-13.0)
[2023-03-19 16:01] LABS: ACTIVATED PTT 31.1 SECONDS (25.2-36.5)
[2023-03-19 16:11] LABS: POTASSIUM 4.2 mmol/L (3.5-5.1)
[2023-03-19 16:14] LABS: CALCIUM 8.5 mg/dL (8.5-10.1)
[2023-03-19 16:15] LABS: ALBUMIN 3.3 g/dl (3.4-5.0); BLOOD UREA NITROGEN 24.2 mg/dL (7-18); MAGNESIUM 2.5 mg/dL (1.8-2.4)
[2023-03-19 16:17] LABS: CREATININE 1.3 mg/dL (0.55-1.3); PHOSPHOROUS 2.8 mg/dL (2.5-4.9)
[2023-03-19 16:19] LABS: BILIRUBIN,TOTAL 0.5 mg/dL (0.2-1); TOT PROT 7.1 g/dl (6.4-8.2)
[2023-03-19 18:19] LABS: EPI CELLS 5 /uL (0-25.1); HYALINE CASTS 0 /uL (0-3.1); PH,URINE 5.5 (5.0-8.0); URINE APPEARANCE CLEAR; URINE BACTERIA 1 /uL (0-1359); URINE BILIRUBIN NEGATIVE (NEGATIVE); URINE COLOR YELLOW; URINE GLUCOSE (UA) NEGATIVE (NEGATIVE); URINE KETONE NEGATIVE (NEGATIVE); URINE LEUK ESTERASE TRACE (NEGATIVE); URINE NITRITE NEGATIVE (NEGATIVE); URINE PROTEIN 2+ (NEGATIVE); URINE UROBILINOGEN 0.2 mg/dL (0.2-1.0); URINE WBC 10 /uL (0-25.8)
[2023-03-19 21:32] LABS: URINE RBC 21.9 /uL (0-23.9)
[2023-03-19 21:33] LABS: YEAST FEW (NEGATIVE)
[2023-03-19] MEDS ORDERED: SODIUM CHLORIDE 1,000 ML IV SCH ×2 (22:45→22:55)
[2023-03-19] MEDS ORDERED: CEFTRIAXONE 1 GM in DEXTROSE 5%-WATER - 50 ML IVPB ONE (23:00)
[2023-03-19] MEDS ORDERED: CEFTRIAXONE 1 GM/50 ML BAG ONE (23:27)
[2023-03-20 02:41] VITALS: BMI 24.3
[2023-03-20 09:09] LABS: BASO % 0.9 % (0-2.0); EOS % 0.4 % (0-4.5); HEMATOCRIT 35.7 % (35.4-49); LYMPH % 26.6 % (8-40); MCH 32.2 pg (25.7-33.7); MCHC 33.6 g/dl (32.0-35.9); MEAN CELL VOLUME 95.8 fl (80-96); MEAN PLT VOLUME 7.7 fl (7.5-11.1); MONO % 11.2 % (3.8-10.2); NEUT % 60.9 % (42.8-82.8); PLATELET COUNT 182 10^3/uL (134-434); RBC 3.72 M/mm3 (4.00-5.60); RDW 15.2 % (11.9-15.9)
[2023-03-20 09:41] LABS: POTASSIUM 3.9 mmol/L (3.5-5.1)
[2023-03-20 09:43] LABS: BLOOD UREA NITROGEN 21.5 mg/dL (7-18); MAGNESIUM 2.3 mg/dL (1.8-2.4)
[2023-03-20 09:47] LABS: CREATININE 1.2 mg/dL (0.55-1.3); PHOSPHOROUS 2.8 mg/dL (2.5-4.9)
[2023-03-20 09:48] LABS: BILIRUBIN,TOTAL 0.5 mg/dL (0.2-1); TOT PROT 6.3 g/dl (6.4-8.2)
[2023-03-20] MEDS: ENOXAPARIN NA (PORCINE) 40 MG/0.4 ML DISP.SYRIN SQ SCH (10:24)
[2023-03-20] MEDS: SODIUM CHLORIDE 1,000 ML IV SCH (14:41)
[2023-03-21] MEDS: SODIUM CHLORIDE 1,000 ML IV SCH ×3 (02:41→18:49)
[2023-03-21] MEDS ORDERED: CEFTRIAXONE 1 GM in DEXTROSE 5%-WATER - 50 ML IVPB SCH (10:00)
[2023-03-21] MEDS: ENOXAPARIN NA (PORCINE) 40 MG/0.4 ML DISP.SYRIN SQ SCH (10:37)
[2023-03-21 10:41] LABS: BASO % 0.8 % (0-2.0); EOS % 1.9 % (0-4.5); HEMATOCRIT 34.6 % (35.4-49); HEMOGLOBIN 12.1 GM/dL (11.7-16.9); LYMPH % 39.8 % (8-40); MCH 32.6 pg (25.7-33.7); MCHC 34.9 g/dl (32.0-35.9); MEAN CELL VOLUME 93.3 fl (80-96); MONO % 8.8 % (3.8-10.2); NEUT % 48.7 % (42.8-82.8); PLATELET COUNT 168 10^3/uL (134-434); RBC 3.71 M/mm3 (4.00-5.60); RDW 14.7 % (11.9-15.9); WHITE BLOOD COUNT 4.3 K/mm3 (4.0-10.0)
[2023-03-21 11:07] LABS: POTASSIUM 3.5 mmol/L (3.5-5.1)
[2023-03-21 11:13] LABS: MAGNESIUM 2.2 mg/dL (1.8-2.4)
[2023-03-21 11:14] LABS: ALBUMIN 2.7 g/dl (3.4-5.0); BLOOD UREA NITROGEN 16.2 mg/dL (7-18); CALCIUM 7.7 mg/dL (8.5-10.1)
[2023-03-21 11:17] LABS: CREATININE 0.9 mg/dL (0.55-1.3)
[2023-03-21 11:18] LABS: PHOSPHOROUS 2.3 mg/dL (2.5-4.9)
[2023-03-21 11:19] LABS: BILIRUBIN,TOTAL 0.5 mg/dL (0.2-1); TOT PROT 6.1 g/dl (6.4-8.2)
[2023-03-21] MEDS: THIAMINE HCL 100 MG TABLET (FP) PO SCH (17:14)
[2023-03-21] MEDS: FOLIC ACID 1 MG TABLET (FP) PO SCH (17:14)
[2023-03-22] MEDS: SODIUM CHLORIDE 1,000 ML IV SCH ×3 (04:00→20:05)
[2023-03-22] MEDS: ATORVASTATIN CA 20 MG TABLET (FP) PO SCH (06:09)
[2023-03-22 09:50] LABS: HEMATOCRIT 36.5 % (35.4-49); HEMOGLOBIN 12.4 GM/dL (11.7-16.9); MCH 32.1 pg (25.7-33.7); MCHC 34.1 g/dl (32.0-35.9); MEAN CELL VOLUME 94.3 fl (80-96); MEAN PLT VOLUME 7.8 fl (7.5-11.1); PLATELET COUNT 179 10^3/uL (134-434); RBC 3.87 M/mm3 (4.00-5.60); RDW 14.4 % (11.9-15.9); WHITE BLOOD COUNT 4.6 K/mm3 (4.0-10.0)
[2023-03-22 10:01] LABS: POTASSIUM 3.8 mmol/L (3.5-5.1)
[2023-03-22 10:07] LABS: ALBUMIN 2.8 g/dl (3.4-5.0); BLOOD UREA NITROGEN 10.4 mg/dL (7-18); CALCIUM 7.8 mg/dL (8.5-10.1); MAGNESIUM 2.2 mg/dL (1.8-2.4)
[2023-03-22 10:10] LABS: PHOSPHOROUS 2.9 mg/dL (2.5-4.9)
[2023-03-22 10:11] LABS: BILIRUBIN,TOTAL 0.5 mg/dL (0.2-1); TOT PROT 6.3 g/dl (6.4-8.2)
[2023-03-22 10:12] LABS: CREATININE 0.8 mg/dL (0.55-1.3)
[2023-03-22] MEDS: THIAMINE HCL 100 MG TABLET (FP) PO SCH (10:32)
[2023-03-22] MEDS: ENOXAPARIN NA (PORCINE) 40 MG/0.4 ML DISP.SYRIN SQ SCH (10:32)
[2023-03-22] MEDS: FOLIC ACID 1 MG TABLET (FP) PO SCH (10:32)
[2023-03-23] MEDS: SODIUM CHLORIDE 1,000 ML IV SCH ×2 (06:14→15:27)
[2023-03-23 08:35] LABS: POTASSIUM 3.9 mmol/L (3.5-5.1)
[2023-03-23 08:37] LABS: CALCIUM 7.6 mg/dL (8.5-10.1)
[2023-03-23 08:38] LABS: ALBUMIN 2.6 g/dl (3.4-5.0); BLOOD UREA NITROGEN 11.5 mg/dL (7-18)
[2023-03-23 08:41] LABS: CREATININE 0.9 mg/dL (0.55-1.3); PHOSPHOROUS 2.9 mg/dL (2.5-4.9)
[2023-03-23 08:42] LABS: TOT PROT 5.7 g/dl (6.4-8.2)
[2023-03-23 08:43] LABS: BILIRUBIN,TOTAL 0.5 mg/dL (0.2-1); HEMATOCRIT 34.1 % (35.4-49); HEMOGLOBIN 11.9 GM/dL (11.7-16.9); MCH 32.5 pg (25.7-33.7); MEAN CELL VOLUME 92.9 fl (80-96); MEAN PLT VOLUME 7.7 fl (7.5-11.1); PLATELET COUNT 165 10^3/uL (134-434); RBC 3.67 M/mm3 (4.00-5.60); RDW 14.3 % (11.9-15.9); WHITE BLOOD COUNT 4.1 K/mm3 (4.0-10.0)
[2023-03-23] MEDS: FOLIC ACID 1 MG TABLET (FP) PO SCH (09:24)
[2023-03-23] MEDS: ATORVASTATIN CA 20 MG TABLET (FP) PO SCH (09:24)
[2023-03-23] MEDS: THIAMINE HCL 100 MG TABLET (FP) PO SCH (09:24)
[2023-03-23] MEDS: ENOXAPARIN NA (PORCINE) 40 MG/0.4 ML DISP.SYRIN SQ SCH (09:24)
[2023-03-23 15:09] VITALS: BP 114/68; PULSE 73; RESP 20; TEMP 97.6
== END 2023-03-23 18:24 | disposition home or self-care (01) | DRG 557 ==
LOC: JER 13:52 → JERBED 16:48 → J7W 03-20 01:25
PROVIDERS: ADMIT Specialist; ATTEND Internal Medicine
DX: M62.82 Rhabdomyolysis (principal); U07.1 COVID-19; G72.0 Drug-induced myopathy; E78.5 Hyperlipidemia, unspecified; R74.01 Elevation of levels of liver transaminase levels; F10.90 Alcohol use, unspecified, uncomplicated; E83.41 Hypermagnesemia; T50.995A Adverse effect of other drugs, medicaments and biological substances, initial encounter; R94.5 Abnormal results of liver function studies; E03.9 Hypothyroidism, unspecified; I12.9 Hypertensive chronic kidney disease with stage 1 through stage 4 chronic kidney disease, or unspecified chronic kidney disease; I44.0 Atrioventricular block, first degree; N18.9 Chronic kidney disease, unspecified; I45.10 Unspecified right bundle-branch block; I48.0 Paroxysmal atrial fibrillation; W18.39XA Other fall on same level, initial encounter; Y92.098 Other place in other non-institutional residence as the place of occurrence of the external cause; Z85.46 Personal history of malignant neoplasm of prostate
CPT/HCPCS: 0241U-QW; 36415; 70450-TC; 71045-TC-FY; 80053; 81003; 82550; 82553; 82607; 82746; 82962; 82977; 83735; 84100; 84439; 84443; 84484; 85025; 85027; 85610; 85651; 85730; 86140; 87086; 93005; 93010; 97116-GP; 97161-GP; 99285-25